=== PATIENT | female | born 1965 | race Caucasian/White ===

== ENCOUNTER 2017-02-15 11:35 | Emergency (ER) | payer MEDICARE, OTHER ==
[~2017-02-15] VITALS: Ht 167.6 cm; Wt 77.3 kg
--- NOTE | 2017-02-15 11:42 | ED.REPORT ---
HPI-Abd Pain F 40 and Over Date of Service Feb 15, 2017 ED Provider: Carmine Du DO Patient is a 51 year old female with a hx of vertigo, HTN, and hyperlipidemia who presents to the ED complaining of gradual onset, constant RLQ abdominal pain onset last night. Associated symptoms include nausea and black diarrhea. She denies vomiting, hematuria, dysuria, hematochezia, new back pain, SOB, or any other symptoms. She has had similar symptoms 5-8 years ago which were thought to be kidney stones. Patient is not on blood thinners. She has had an appendectomy and cholecystectomy. Nursing Notes Stated Complaint: LOW ABD PAIN,VOMITING Chief Complaint: Female Abdominal Pain Nursing Notes Reviewed: Yes Allergies: Coded Allergies: promethazine (Verified Allergy, Intermediate, HIVES, 02/15/17) Scheduled Tamsulosin (Flomax) 0.4 Mg Capsule 0.4 MG PO HS Scheduled PRN Naproxen (Naproxen) 375 Mg Tablet 375 MG PO BID PRN PRN For Pain Oxycodone (Roxicodone) 5 Mg Tablet 10 MG PO QID PRN PRN For Pain General Time Seen by MD: 11:41 Chief Complaint Abdominal pain Hx Obtained From: Patient Arrived By: Walk-in Sudden in Onset?: Yes Onset Occurred: Yesterday Symptom Duration: Since onset Similar Sx Previous: Yes Risk Factors )( AAA Risk Stratification HypertensionNo Prior AAA Risk factors reviewed Past Medical History Past Medical History Vertigo chronic back pain Reports: GERD, Hyperlipidemia, Hypertension Past Surgical History oophorectomy Reports: Appendectomy, Cholecystectomy, Hysterectomy (Total ) Reports: Back/neck surgery, Pacemaker insertion Smoking History Unknown if Ever Smoker Social History Other Social History: Good social support, Ambulatory Status Independent Review of Systems Respiratory: Denies: Shortness of breath GI: Reports: Abdominal pain, Diarrhea, Melena, Nausea, Denies: Hematochezia, Vomiting Female: Denies: Dysuria, Hematuria Musculoskeletal: Denies: Back pain Complete sys rev & neg: except as marked. Physical Exam Vital Signs Vital Signs (First) Date Time Temp Pulse Resp B/P Pulse Ox O2 Delivery O2 Flow Rate FiO2 02/15/17 11:38 35.8 02/15/17 12:01 64 20 157/89 100 Room Air Initial VS: Reviewed Head / Eyes: Atraumatic, Normocephalic Neck: Full range of motion Skin: Warm, Dry Neurologic: Alert, Oriented, Nonfocal Psychiatric: Mood/affect normal, Behavior normal, Normal thought content General/Constitutional: Awake, Alert, No acute distress Respiratory / Chest: Atraumatic, Breath sounds NL, Breath sounds = bilat, No respiratory distress Cardiovascular: Heart rate NL, Regular rhythm, Heart sounds NL Abdomen: Atraumatic, Soft Tenderness/Guarding/Rebound: Positive: Tender RLQ... (Mild) Back: Atraumatic Interpretation & Diagnostics Lab Results Interpretation Result Diagram: 02/15/17 1155 02/15/17 1155 Test 02/15/17 11:55 White Blood Count 8.3th/mm3 (3.8-10.1) Red Blood Count 5.11mil/mm3 (3.90-5.20) Hemoglobin 14.4g/dL (12.0-15.6) Hematocrit 43.0% (35.0-46.0) Mean Corpuscular Volume 84.1fL (81-100) Mean Corpuscular Hemoglobin 28.2pg (27.0-35.0) Mean Corpuscular Hemoglobin Concent 33.5% (32.0-37.0) Red Cell Distribution Width 13.3% (12.3-15.4) Platelet Count 257bil/L (150-400) Neutrophils (%) (Auto) 65.8% (40-74) Lymphocytes (%) (Auto) 26.0% (14-46) Monocytes (%) (Auto) 5.3% (4-12) Eosinophils (%) (Auto) 2.3% (0-5) Basophils (%) (Auto) 0.5% (0-3) Sodium Level 138mEq/L (134-144) Potassium Level 3.9mEq/L (3.5-5.2) Chloride Level 99mEq/L (97-108) Carbon Dioxide Level 23mmol/L (18-29) Blood Urea Nitrogen 13mg/dL (6-24) Creatinine 0.95mg/dL (0.57-1.00) Estimat Glomerular Filtration Rate 88mL/min (>59) Glucose Level 109mg/dL (60-99) Calcium Level 10.4mg/dL (8.5-10.1) Magnesium Level 2.2mg/dL (1.6-2.6) Total Bilirubin 0.5mg/dL (0.0-1.2) Aspartate Amino Transf (AST/SGOT) 24U/L (0-50) Alanine Aminotransferase (ALT/SGPT) 11U/L (0-32) Alkaline Phosphatase 143U/L (25-150) Total Protein 8.4g/dL (6.4-8.4) Albumin 4.7g/dL (3.4-5.0) Lipase 59U/L (13-60) Hold Vasquez Top Tube Received (Received) Lab Results Interpretation: Blood in urine, no leuks CT Abd / Pelvis Interpretation CT KUB: IMPRESSION: 1. Moderate to severe right hydronephrosis and hydroureter secondary to a distal right ureteral calculus as above. Dictated by: Stephanie Rose M.D. on 02/15/2017 at 12:00 Approved by: Stephanie Rose M.D. on 02/15/2017 at 12:06 Interpretation / Wet Read by: Interpret - Radiologist Re-Eval/Medical Decision Med Decision/Clinical Course Kidney stone without signs of infection. We will plan to discharge on oxycodone, naproxen, Flomax. Follow-up precautions given Re-Evaluation/Progress : Time of Eval: 13:42 )( Re-Eval Abdomen: Soft Re-Evaluation/Progress Note: Discussed imaging results plan for discharge. Patient understands and agrees with plan. All questions addressed at this time. Counseled Regarding: Diagnosis, Lab results, Need for follow-up, When/why to return to ED Discharge & Departure Primary Impression: Nephrolithiasis Disposition: Home Discharge Condition Condition: Stable Patient Instructions: Kidney Stones (ED) Additional Instructions: You have a kidney stone. Take naproxen, oxycodone, and [id number] Tylenol for pain. Use Flomax to help pass the stone. Call the urologist and a primary care doctor today for close follow-up. Return to the ER as needed for fever, persistent vomiting, severe uncontrolled pain, or other concerns. Dorotaibmanisha Attestation Portions of this note were transcribed by Danny Lee. I, Dr. Du personally performed the history, physical exam and medical decision-making; I reviewed and confirmed the accuracy of the information in the transcribed note. Signed by: Thien Whiteside, 02/15/17 Carmine uD DO Feb 15, 2017 11:42 DANNY LEE Feb 15, 2017 11:49
[2017-02-15] MEDS ORDERED: 0.9% Sodium Chloride 1,000 ML IV ONE (11:54)
[2017-02-15] MEDS ORDERED: Ketorolac 15 mg/mL Inj IVPUSH ONE (11:55)
[2017-02-15] MEDS ORDERED: Ondansetron 2 mg/mL 2 mL Inj IVPUSH PRN (11:55)
[2017-02-15 12:01] VITALS: BP 157/89; PULSE 64; RESP 20; O2SAT 100
[2017-02-15 12:21] LABS: BASOPHILS % (AUTO) 0.5 % (0-3); EOSINOPHILS % (AUTO) 2.3 % (0-5); MONOCYTES % (AUTO) 5.3 % (4-12); Mean Corpuscular Hemoglobin 28.2 pg (27.0-35.0); Mean Corpuscular Volume 84.1 fL (81-100); NEUTROPHILS % (AUTO) 65.8 % (40-74); Platelet Count 257 bil/L (150-400)
[2017-02-15 12:24] LABS: Magnesium 2.2 mg/dL (1.6-2.6)
--- NOTE | 2017-02-15 13:08 | DRSVH ---
PROCEDURE: CT KUB ([id number]) INDICATIONS: right sided abd pain, hematuria TECHNIQUE: Noncontrast 5 mm thick sections acquired from the diaphragms to the symphysis. 5 mm thick coronal an d sagittal reformats were then performed. For radiation dose reduction, the following was used: aut omated exposure control, adjustment of mA and/or kV according to patient size. COMPARISON: None. FINDINGS: Image quality: Excellent. Lung bases: Lung bases are clear. Heart size is normal. Urinary system: Both kidneys are normal in size. There is moderate to severe right hydronephrosis an d hydroureter with a 6 mm, Hounsfield unit 663 stone in the distal right ureter. There is a punctate nonobstructing stone in the inferior poles of the kidneys bilaterally as well as an additional puncta te left mid pole calcification. There is no left renal obstruction. Bladder has limited evaluation se condary to incomplete distention; no calcified bladder stones. Other solid organs: Liver and spleen are normal in size. 22 mm hepatic cyst is present. Gallbladder has been removed. Pancreas is normal in contours. No adrenal nodules. Peritoneum and bowel: Unenhanced bowel loops demonstrate normal wall thickness and caliber. No free fluid or air. Nodes and vessels: No retroperitoneal or mesenteric adenopathy by size criteria. Aorta and inferior vena cava are normal in caliber. Abdominal wall: No ventral hernias. Pelvis: No free pelvic fluid. No inguinal hernias or adenopathy. Bones: No suspicious bony lesions. No vertebral body compression fractures. IMPRESSION: 1. Moderate to severe right hydronephrosis and hydroureter secondary to a distal right ureteral calcu carissa as above. Dictated by: Stephanie Rose M.D. on 02/15/2017 at 12:00 Approved by: Stephanie Rose M.D. on 02/15/2017 at 12:06
[2017-02-15] MEDS ORDERED: TAMS0.4C98 PO (13:41)
[2017-02-15] MEDS ORDERED: OXYC-474 PO (13:41)
[2017-02-15] MEDS ORDERED: NAPR375T2 PO (13:41)
[2017-02-15 13:49] VITALS: BP 134/77; PULSE 76; RESP 16; O2SAT 96
== END 2017-02-15 13:50 | disposition home or self-care (01) ==
LOC: SED 11:35
DX: N20.0 Calculus of kidney (principal); R19.7 Diarrhea, unspecified; I10 Essential (primary) hypertension; E78.5 Hyperlipidemia, unspecified; K21.9 Gastro-esophageal reflux disease without esophagitis; G89.29 Other chronic pain; Z95.0 Presence of cardiac pacemaker; Z88.8 Allergy status to other drugs, medicaments and biological substances
CPT/HCPCS: 36415; 74176; 80053; 83690; 83735; 85025; 96361; 96374; 96375; 99285; J1885; J2270; J2405; J7030

== ENCOUNTER 2017-03-09 16:20 | Emergency (ER) | payer MEDICARE, OTHER ==
[~2017-03-09] VITALS: Ht 167.6 cm; Wt 78.6 kg
[~2017-03-09 16:20] MED LIST: NAPR375T2 PO; OXYC-474 PO; TAMS0.4C98 PO
[2017-03-09 16:29] VITALS: BP 139/74; PULSE 71; RESP 16; O2SAT 100
--- NOTE | 2017-03-09 16:30 | ED.REPORT ---
HPI-General Illness Date of Service Mar 09, 2017 ED Provider: Ike Faith MD Alisson is an otherwise healthy 51-year-old woman with a recent history of nephrolithiasis presenting to emergency department for ongoing right flank pain. Patient reports stabbing pain in her right lower abdomen and side. Seen in this department approximately 3 weeks ago for similar but more severe complaints and diagnosed by CT with a 6 mm right-sided kidney stone. She has been straining her urine and has not collected a stone. Pain is been ongoing though improved slightly. Pain is aggravated by urination. She has appointment to be seen by urology in approximately one week. Denies hematuria, fever, shaking chills, vomiting, nausea, diarrhea, melena, hematochezia, vaginal bleeding/discharge. Admits history of appendectomy, cholecystectomy, hysterectomy. Nursing Notes Stated Complaint: KIDNEY PAIN Chief Complaint: Female Abdominal Pain Nursing Notes Reviewed: Yes Allergies: Coded Allergies: promethazine (Verified Allergy, Intermediate, HIVES, 02/15/17) Scheduled Tamsulosin (Flomax) 0.4 Mg Capsule 0.4 MG PO HS Tamsulosin (Flomax) 0.4 Mg Capsule 0.4 MG PO DAILY Scheduled PRN Naproxen (Naproxen) 375 Mg Tablet 375 MG PO BID PRN PRN For Pain Oxycodone (Roxicodone) 5 Mg Tablet 10 MG PO QID PRN PRN For Pain General Time Seen by MD: 16:29 Chief Complaint Other (right flank pain) Past Medical History Past Medical History Vertigo chronic back pain Reports: GERD, Hyperlipidemia, Hypertension Past Surgical History oophorectomy Reports: Appendectomy, Cholecystectomy, Hysterectomy Reports: Back/neck surgery, Pacemaker insertion Smoking History Unknown if Ever Smoker Social History Other Social History: Good social support, Ambulatory Status Independent Review of Systems General: Denies fever, chills, malaise. HEENT: Denies congestion, headache, sore throat. Respiratory: Denies dyspnea, cough, shortness of breath, wheezing. Cardiovascular: Denies chest pain, palpitations. Gastrointestinal: Denies vomiting, diarrhea, admits abdominal pain. Genitourinary: Denies frequency, urgency, dysuria, hematuria. Otherwise as noted in HPI. Physical Exam General: Well appearing, well developed, well nourished, no acute distress. Head: Atraumatic, normocephalic. Eyes: No scleral icterus or injection. No discharge. Vision grossly intact. ENT: Voice clear, hearing grossly intact. Respiratory: Regular rate and rhythm. Breath sounds present, clear to auscultation and equal bilaterally. No respiratory distress. No increased work of breathing, speaks in complete sentences. Cardiovascular: Regular rate and rhythm, without murmur, gallop or rub. No pedal edema. Gastrointestinal: Abdomen flat and non-tender without guarding or rebound. Bowel sounds normoactive. Skin: Warm and dry. Back: Normal to inspection, negative CVA tenderness to palpation and percussion. Neurological: Grossly nonfocal. Psychological: Alert and oriented. Speech appropriate, linear and logical. Behavior appropriate. Vital Signs Vital Signs Date Time Temp Pulse Resp B/P Pulse Ox O2 Delivery O2 Flow Rate FiO2 03/09/17 19:09 69 125/63 93 Room Air 03/09/17 16:29 36.7 71 16 139/74 100 Room Air Elevated blood pressure Interpretation & Diagnostics Lab Results Interpretation Result Diagram: 03/09/17 1657 03/09/17 1657 Test 03/09/17 16:57 03/09/17 16:58 White Blood Count 9.4th/mm3 (3.8-10.1) Red Blood Count 4.50mil/mm3 (3.90-5.20) Hemoglobin 12.8g/dL (12.0-15.6) Hematocrit 38.2% (35.0-46.0) Mean Corpuscular Volume 84.9fL (81-100) Mean Corpuscular Hemoglobin 28.4pg (27.0-35.0) Mean Corpuscular Hemoglobin Concent 33.5% (32.0-37.0) Red Cell Distribution Width 13.4% (12.3-15.4) Platelet Count 191bil/L (150-400) Neutrophils (%) (Auto) 71.6% (40-74) Lymphocytes (%) (Auto) 19.2% (14-46) Monocytes (%) (Auto) 6.5% (4-12) Eosinophils (%) (Auto) 2.3% (0-5) Basophils (%) (Auto) 0.3% (0-3) Urine Color Yellow (YELLOW) Urine Appearance Clear (CLEAR,HAZY) Urine pH 6.0 (5.0-8.0) Urine Specific [place] 1.025 (1.003-1.035) Urine Protein Negativemg/dL (NEG,TRACE) Urine Glucose (UA) Negativemg/dL (NEGATIVE) Urine Ketones Negativemg/dL (NEGATIVE) Urine Occult Blood Moderate (NEGATIVE) Urine Nitrite Negative (NEGATIVE) Urine Bilirubin Negative (NEGATIVE) Urine Urobilinogen Normalmg/dL (NORMAL) Urine Leukocyte Esterase Negative (NEGATIVE) Urine RBC 3-10/hpf (0-2) Urine WBC 0-5/hpf (0-5) Urine Epithelial Cells Few/hpf (NONE-MOD) Urine Crystals None seen (NONE SEEN) Urine Bacteria None/hpf (NONE-FEW) Urine Hyaline Casts None/lpf (NONE) Urine Granular Casts None seen (NONE SEEN) Urine Waxy Casts None seen (NONE SEEN) Urine Red Blood Cell Casts None seen (NONE SEEN) Urine White Blood Cell Casts None seen (NONE SEEN) Urine Mucus None seen (None Seen) Urine Trichomonas None seen (NONE SEEN) Urine Yeast None (NONE SEEN) Urinalysis Comment None Urine Culture Reflexed Not indicated Sodium Level 137mEq/L (134-144) Potassium Level 3.7mEq/L (3.5-5.2) Chloride Level 102mEq/L (97-108) Carbon Dioxide Level 21mmol/L (18-29) Blood Urea Nitrogen 19mg/dL (6-24) Creatinine 1.13mg/dL (0.57-1.00) Estimat Glomerular Filtration Rate 72mL/min (>59) Glucose Level 99mg/dL (60-99) Calcium Level 9.5mg/dL (8.5-10.1) Total Bilirubin 0.3mg/dL (0.0-1.2) Aspartate Amino Transf (AST/SGOT) 21U/L (0-50) Alanine Aminotransferase (ALT/SGPT) 9U/L (0-32) Alkaline Phosphatase 134U/L (25-150) Total Protein 7.6g/dL (6.4-8.4) Albumin 4.1g/dL (3.4-5.0) Hold Vasquez Top Tube Received (Received) CT Abd / Pelvis Interpretation PROCEDURE: CT KUB ([id number]) INDICATIONS: Righ flank pain IMPRESSION: 1. A 6 mm stone at the right UPJ, causing moderate hydronephrosis and hydroureter. Interpretation / Wet Read by: Interpret - Radiologist Re-Eval/Medical Decision Med Decision/Clinical Course 51-year-old female returns to emergency Department after being diagnosed about 3 weeks ago with a right-sided 6mm kidney stone. Complains of ongoing pain in her abdomen and flank. Denies other symptoms. Has appointment for urology follow-up in one week. Physical examination is benign with normal vital signs, soft abdomen, negative CVA tenderness. CBC,CMP and UA are ordered. CT KUB is ordered after consultation with Dr. faith. CBC is unimpressive, CMP reveals mildly elevated creatinine at 1.15. UA is positive for trace blood otherwise does not indicate infection. CT KUB reveals 6 mm stone at the ureteropelvic junction, hydronephrosis. We feel this is the most likely cause of her pain. Reassured against AAA, pyelonephritis, abscess, appendicitis or cholecystitis. I discussed these findings with Dr. Doherty, who does not feel intervention is warranted at this time. She advises Flomax, pain medication, follow-up as planned. I discussed this with Dr. jose melissa, who evaluated and examined the patient. He agrees she is stable and safe to be discharged home. Provided prescription for Flomax. Patient states that she has a good supply of pain medication. Advised urology follow-up as planned, provided emergent return precautions. Patient verbalizes understanding of and consent to the plan. Consultation : Referral / Consult Name: Alisson Doherty MD Consulted With: Urology Note: Discuss imaging and lab results including elevated creatinine. Dr. Doherty Believes a 6 mm stone which is making progress has an excellent chance of passing without intervention. Advises continued Flomax, hydration, pain medication. Advises follow-up as planned. Discharge & Departure Primary Impression: Nephrolithiasis Additional Impressions: Flank pain Hydronephrosis Hydronephrosis type: unspecified Qualified Code: N13.30 - Unspecified hydronephrosis Disposition: Home Discharge Condition All VS Reviewed: Yes Condition: Stable Patient Instructions: Kidney Stones (ED) Additional Instructions: Evaluation for right flank pain in the emergency department include interview, physical examination, urinalysis, blood work and CT scan all of which revealed a kidney stone has moved but has not yet passed. I have discussed this finding with our urologist, who feels that this stone has excellent chance of passing on its own with continued use of Flomax and hydration. I will write a prescription for Flomax. This helps relax the ureter to pass the stone. The pain is best treated with 500 mg of naproxen (Aleve) every 12 hours, or 1000 mg of acetaminophen (Tylenol) every 6 hours. These drugs can be taken at the same time for more severe pain. You can SUBSTITUTE the Vicodin you were previously prescribed for the acetaminophen (Tylenol) if she needed additional pain relief. Do not take them together, do not drive or drink alcohol while taking Vicodin. Follow-up with urology as you have planned. Return to emergency department for new or worsening symptoms including increasing pain, fever, vomiting that does not respond to medication. Referrals: NOPCP (PCP) EDSupervising Provider for APC: Ike Faith MD Attending Statement Attending attestation: I saw this patient in conjunction with Marcus Baca PA-C. I was present for all andrade portions of the history taking and physical examination. I agree with the workup, evaluation, treatment and disposition. Ike Hickey MD, MD Mar 09, 2017 16:30 Marcus Baca PA-C Mar 09, 2017 17:14
[2017-03-09] MEDS ORDERED: oxyCODONE-Acetamin 5-325 mg Tablet PO ONE (16:40)
[2017-03-09 17:06] LABS: BASOPHILS % (AUTO) 0.3 % (0-3); EOSINOPHILS % (AUTO) 2.3 % (0-5); MONOCYTES % (AUTO) 6.5 % (4-12); Mean Corpuscular Hemoglobin 28.4 pg (27.0-35.0); Mean Corpuscular Volume 84.9 fL (81-100); NEUTROPHILS % (AUTO) 71.6 % (40-74); Platelet Count 191 bil/L (150-400)
[2017-03-09 17:11] LABS: APPEARANCE,URINE CLEAR (CLEAR,HAZY); COLOR,URINE YELLOW (YELLOW); OCCULT BLOOD,URINE MODERATE (NEGATIVE); UROBILINOGEN,URINE NORMAL (NORMAL)
--- NOTE | 2017-03-09 17:44 | DRSVH ---
PROCEDURE: CT KUB ([id number]) INDICATIONS: Righ flank pain TECHNIQUE: Noncontrast 5 mm thick sections acquired from the diaphragms to the symphysis. 5 mm thick coronal an d sagittal reformats were then performed. For radiation dose reduction, the following was used: aut omated exposure control, adjustment of mA and/or kV according to patient size. COMPARISON: [facility], CT, CT KUB, 02/15/2017, 12:14. FINDINGS: Image quality: Excellent. Lung bases: Lung bases are clear. Heart size is mildly increased. Cardiac pacemaker leads are noted . Small hiatal hernia. Urinary system: There is a 6 mm stone at the right UVJ, which has advanced to distally since 02/16/20 17. There is moderate right hydronephrosis and hydroureter. The kidneys slightly enlarged likely seco ndary to obstructive nephropathy. There is mild right perinephric stranding. A few 1-2 mm stones are seen in the left kidney. No left hydronephrosis. Bladder wall thickness is no rmal; no calcified bladder stones. Other solid organs: There is a 2 cm cyst in the left hepatic lobe. Liver and spleen are normal in si ze. Gallbladder is surgically absent. Pancreas is normal in contours. No adrenal nodules. Peritoneum and bowel: Unenhanced bowel loops demonstrate normal wall thickness and caliber. No free fluid or air. Nodes and vessels: No retroperitoneal or mesenteric adenopathy by size criteria. Aorta and inferior vena cava are normal in caliber. Abdominal wall: No ventral hernias. Pelvis: No free pelvic fluid. No inguinal hernias or adenopathy. Bones: No suspicious bony lesions. No vertebral body compression fractures. IMPRESSION: 1. A 6 mm stone at the right UPJ, causing moderate hydronephrosis and hydroureter. Dictated by: Lobito Merritt M.D. on 03/09/2017 at 17:35 Approved by: Lobito Merritt M.D. on 03/09/2017 at 17:43
[2017-03-09] MEDS ORDERED: TAMS0.4C98 PO (18:55)
[2017-03-09 19:09] VITALS: BP 125/63; PULSE 69; O2SAT 93
== END 2017-03-09 19:09 | disposition home or self-care (01) ==
LOC: SED 16:20
DX: N13.2 Hydronephrosis with renal and ureteral calculous obstruction (principal); I10 Essential (primary) hypertension; E78.5 Hyperlipidemia, unspecified; K21.9 Gastro-esophageal reflux disease without esophagitis; Z95.0 Presence of cardiac pacemaker; Z90.49 Acquired absence of other specified parts of digestive tract; Z88.1 Allergy status to other antibiotic agents